=== PATIENT | male | born 2000 | race Two or more races ===

== ENCOUNTER 2023-08-08 21:59 | Emergency (ER) | payer SELFPAY ==
[~2023-08-08] VITALS: Ht 188 cm; Wt 86.4 kg
[2023-08-09] MEDS ORDERED: CEPH500C PO (04:45)
[2023-08-09 05:00] VITALS: BP 132/68; PULSE 78; RESP 16; TEMP 98.4; O2SAT 95
== END 2023-08-09 05:15 | disposition home or self-care (01) ==
LOC: ER 21:59
DX: L03.032 Cellulitis of left toe (principal); L60.0 Ingrowing nail
CPT/HCPCS: 10060; 11730; 73660